=== PATIENT | female | born 1960 | race Two or more races ===

== ENCOUNTER 2020-06-16 10:51 | Outpatient (CLI) | payer OTHER | END 2020-06-16 13:09 | disposition home or self-care (01) | LOC: OFIC 805 10:51 | PROVIDERS: ATTEND Otolaryngology Otology & Neurotology | DX: J32.4 Chronic pansinusitis (principal); J33.8 Other polyp of sinus; R09.81 Nasal congestion ==

== ENCOUNTER 2020-07-12 14:59 | Outpatient (CLI) | payer OTHER | END 2020-07-12 16:06 | disposition home or self-care (01) | LOC: OFIC 805 14:59 | PROVIDERS: ATTEND Otolaryngology Otology & Neurotology | DX: J32.0 Chronic maxillary sinusitis (principal); D37.05 Neoplasm of uncertain behavior of pharynx; R09.81 Nasal congestion ==

== ENCOUNTER 2020-08-20 10:54 | Day surgery (SDC) | payer OTHER ==
[~2020-08-20 10:54] MED LIST: SYNTHROID88 MCG PO; VITAMIN D PO
== END 2020-08-20 21:20 | disposition home or self-care (01) ==
LOC: CIR.AMB 10:54
PROVIDERS: ATTEND Otolaryngology Otology & Neurotology
DX: J33.8 Other polyp of sinus (principal); J32.0 Chronic maxillary sinusitis; J32.3 Chronic sphenoidal sinusitis; Z20.822 Contact with and (suspected) exposure to COVID-19

== ENCOUNTER 2020-08-25 14:57 | Outpatient (CLI) | payer OTHER | END 2020-08-25 15:18 | disposition home or self-care (01) | LOC: OFIC 805 14:57 | PROVIDERS: ATTEND Otolaryngology Otology & Neurotology | DX: J32.4 Chronic pansinusitis (principal); J33.8 Other polyp of sinus; R09.81 Nasal congestion; D37.05 Neoplasm of uncertain behavior of pharynx; J32.0 Chronic maxillary sinusitis ==